=== PATIENT | male | born 1970 | race Caucasian/White ===

== ENCOUNTER → 2020-03-27 | Emergency (ER) | payer MEDICAID ==
[~2020-03-27] VITALS: Ht 180.3 cm; Wt 94.3 kg
[2020-03-27 11:03] VITALS: BP 143/96
== END ==
LOC: ED 12:06
DX: U07.1 COVID-19 (principal); R50.9 Fever, unspecified; B34.9 Viral infection, unspecified; F17.210 Nicotine dependence, cigarettes, uncomplicated
CPT/HCPCS: 87635; 99283; 99406